=== PATIENT | female | born 1965 | race Caucasian/White ===

== ENCOUNTER 2019-03-10 18:12 | Emergency (ER) | payer BC ==
[~2019-03-10] VITALS: Ht 165.1 cm; Wt 67.3 kg
[2019-03-10] MEDS ORDERED: LORazepam 2 MG/ML VIAL (J2060) IV STA (19:22)
[2019-03-10] MEDS ORDERED: NS 1,000 ML IV ONE (19:30)
[2019-03-10] MEDS ORDERED: OXAZEPAM 15 MG CAP PO ONE ×2 (19:30→21:30)
[2019-03-10 19:44] LABS: BASO % 0.3 % (0.0-1.0); EOS # 0.1 10^3/uL (0.0-0.5); EOS % 0.8 % (0.0-3.0); HEMATOCRIT 45.3 % (36.0-47.0); HEMOGLOBIN 15.8 g/dl (12.0-15.5); LYMPH # 2.5 10^3/uL (1.5-5.0); LYMPH % 38.9 % (24.0-44.0); MEAN CORPUSCULAR HEMOGLOBIN 31.8 pg (27.0-33.0); MEAN CORPUSCULAR HGB CONC 34.9 g/dl (32.0-36.5); MEAN CORPUSCULAR VOLUME 91.1 fl (80.0-96.0); MONO # 0.4 10^3/uL (0.0-0.8); MONO % 6.5 % (0.0-5.0); NEUTROPHILS # 3.4 10^3/uL (1.5-8.5); NEUTROPHILS % 53.2 % (36.0-66.0); PLATELET COUNT, AUTOMATED 245 10^3/uL (150-450); RED BLOOD COUNT 4.97 10^6/uL (4.00-5.40); WHITE BLOOD COUNT 6.5 10^3/uL (4.0-10.0)
[2019-03-10 19:55] LABS: INR 0.86; PROTHROMBIN TIME 11.4 SECONDS (11.8-14.0)
[2019-03-10 20:20] LABS: ALBUMIN 4.1 GM/DL (3.2-5.2); ALT/SGPT 50 U/L (12-78); BILIRUBIN,DIRECT 0.1 MG/DL (0.0-0.2); BILIRUBIN,TOTAL 0.4 MG/DL (0.2-1.0); BLOOD UREA NITROGEN 14 MG/DL (7-18); CARBON DIOXIDE LEVEL 22 MEQ/L (21-32); CHLORIDE LEVEL 105 MEQ/L (98-107); CK-MB VALUE MASS 3.4 NG/ML (<3.6); CPK CREATINE PHOSPHOKINASE 263 U/L (26-192); CREATININE FOR GFR 1.18 MG/DL (0.55-1.30); ETHYL ALCOHOL (ETHANOL) 0.016 % (0.000-0.010); FREE T4 0.71 NG/DL (0.76-1.46); GLUCOSE, FASTING 91 MG/DL (70-100); MB/CK RELATIVE INDEX 1.29 (< OR =4); POTASSIUM SERUM 3.5 MEQ/L (3.5-5.1); SODIUM LEVEL 138 MEQ/L (136-145); TOTAL PROTEIN 7.8 GM/DL (6.4-8.2); TROPONIN I < 0.02 NG/ML (< 0.10)
[2019-03-10 20:24] LABS: AMPHETAMINES LEVEL URINE NEGATIVE (NEGATIVE); BARBITURATES URINE NEGATIVE (NEGATIVE); BENZODIAZEPINES URINE POSITIVE (NEGATIVE); CANNABINOIDS URINE NEGATIVE (NEGATIVE); COCAINE METABOLITE URINE NEGATIVE (NEGATIVE); METHADONE URINE NEGATIVE (NEGATIVE); OPIATES URINE NEGATIVE (NEGATIVE); PHENCYCLIDINE URINE NEGATIVE (NEGATIVE)
[2019-03-10] MEDS ORDERED: OXAZ30CA2 PO (23:38)
[2019-03-11] VITALS: BP 108/57
--- NOTE | 2019-03-11 05:54 | ECGEPIP ---
[facility] - ED Test Date: 2019-03-10 Pat Name: MARTI MARIE Department: Room: - Gender: Female Clothing Manager: : 1965 Requested By: Federico Zuluaga Order Number: [id number] Reading MD: Federico Alvarado Measurements Intervals [place] Rate: 127 P: 40 ME: 149 QRS: 28 QRSD: 89 T: 28 QT: 311 QTc: 453 Interpretive Statements SINUS TACHYCARDIA POSSIBLE INFERIOR MYOCARDIAL INFARCTION, PROBABLY OLD NO PRIORS FOR COMPARISON Electronically Signed on 03-11-2019 5:54:03 EDT by Federico Alvarado
== END 2019-03-11 00:09 | disposition home or self-care (01) ==
LOC: M ED 18:12
DX: F10.239 Alcohol dependence with withdrawal, unspecified (principal); R25.1 Tremor, unspecified; I10 Essential (primary) hypertension; E04.2 Nontoxic multinodular goiter; E05.90 Thyrotoxicosis, unspecified without thyrotoxic crisis or storm
CPT/HCPCS: 36415; 80048; 80076; 80307; 82550; 82553; 84439; 84443; 84484; 85025; 85610; 93005; 96361; 96374; 99285; G0480; J2060